=== PATIENT | female | born 1995 ===

== ENCOUNTER 2021-10-19 18:03 | Emergency (ER) | payer MEDICAID ==
[2021-10-19 21:07] LABS: Mucus,Urine FEW /HPF
[2021-10-19 21:17] LABS: Color,Urine Yellow (Yellow)
[2021-10-19 21:31] LABS: Basophils % (Auto) 0.2 % (0.0-1.8); Eosinophils # (Auto) 0.1 K/mm3 (0.0-0.4); Eosinophils % (Auto) 1.3 % (0.0-4.3); Hematocrit 32.6 % (30.3-42.9); Hemoglobin 10.5 gm/dl (10.1-14.3); Lymphocytes # (Auto) 3.3 K/mm3 (1.2-5.4); Lymphocytes % (Auto) 49.2 % (13.4-35.0); Mean Corpuscular HGB Conc 32 % (30-34); Mean Corpuscular Volume 81 fl (79-97); Monocytes # (Auto) 0.7 K/mm3 (0.0-0.8); Monocytes % (Auto) 10.8 % (0.0-7.3); Platelet Count 278 K/mm3 (140-440); Red Blood Count 4.05 M/mm3 (3.65-5.03); Red Cell Distribution Width 15.7 % (13.2-15.2)
--- NOTE | 2021-10-20 04:17 | Emergency Department Report ---
ED Female HPI - General Chief complaint: Vaginal Bleeding Stated complaint: 7WKS /BLEEDING Time Seen by Provider: 10/20/21 03:57 Source: patient Mode of arrival: Ambulatory Limitations: No Limitations - History of Present Illness Initial comments: 26-year-old female with a reported history of miscarriage in June 2021 presents emergency department reporting to be of light from the 6 to 7 weeks and is beginning to experience some similar symptoms that preceded the after mentioned miscarriage. States has been having some spotting which is grown more heavy over the past several hours however no associated pelvic pain, cramping. No fevers, chills, sweats. No nausea, no vomiting, no hematuria, no dysuria. MD Complaint: vaginal bleeding Radiation: suprapubic Severity: mild Improves with: none Worsens with: none Are you Now?: Yes - Related Data Allergies Allergy/AdvReac Type Severity Reaction Status Date / Time No Known Allergies Allergy Unverified 10/19/21 20:23 ED Review of Systems ROS: Stated complaint: 7WKS /BLEEDING Other details as noted in HPI Comment: All other systems reviewed and negative ED Past Medical Hx - Past Medical History Previous Medical History?: No - Surgical History Additional Surgical History: D&C ED Physical Exam - General Limitations: No Limitations General appearance: alert, in no apparent distress - Head Head exam: Present: atraumatic, normocephalic - Eye Eye exam: Present: normal appearance, PERRL Pupils: Present: normal accommodation - ENT ENT exam: Present: normal exam, normal orophraynx, mucous membranes moist - Neck Neck exam: Present: normal inspection, full ROM - Respiratory Respiratory exam: Present: normal lung sounds bilaterally. Absent: respiratory distress, wheezes, rales, rhonchi, chest wall tenderness, decreased breath sounds - Cardiovascular Cardiovascular Exam: Present: regular rate, normal rhythm. Absent: systolic mur mur, diastolic murmur, rubs, gallop - GI/Abdominal GI/Abdominal exam: Present: soft, normal bowel sounds. Absent: distended, tenderness - Extremities Exam Extremities exam: Present: normal inspection, full ROM, normal capillary refill. Absent: pedal edema - Back Exam Back exam: Present: normal inspection. Absent: CVA tenderness (R), CVA tenderness (L), muscle spasm, vertebral tenderness - Neurological Exam Neurological exam: Present: alert, oriented X3, CN II-XII intact, normal gait - Psychiatric Psychiatric exam: Present: normal affect, normal mood - Skin Skin exam: Present: warm, dry, intact, normal color. Absent: rash, diaphoretic, erythema ED Course Vital Signs 10/19/21 20:24 Temperature 99 F Pulse Rate 84 Respiratory 16 Rate Blood Pressure 136/75 [Right] O2 Sat by Pulse 100 Oximetry ED Medical Decision Making - Lab Data Result diagrams: 10/19/21 20:52 Critical care attestation.: If time is entered above; I have spent that time in minutes in the direct care of this critically ill patient, excluding procedure time. ED Disposition Condition: Stable Referrals: AMANDA MOLINA MD [Primary Care Provider] - 3-5 Days
--- NOTE | 2021-10-20 06:14 | Ultrasound Report ---
ULTRASOUND OBSTETRIC Indication: pelvic pain and Findings: There is a tiny hypoechoic sac within the endometrial canal that measures about 8 mm in diameter and may represent early gestational sac both ovaries appear unremarkable. No significant free pelvic flui d identified at this time. Impression: Small hypoechoic sac within the endometrial canal may represent early gestational sac, as above. Signer Name: Beny Brandon MD Signed: 10/20/2021 6:10 AM Workstation Name: [employer]
[2021-10-20 09:18] VITALS: BP 132/82
== END 2021-10-20 09:31 | disposition home or self-care (01) ==
LOC: ED 18:03
DX: O20.8 Other hemorrhage in early pregnancy (principal); Z3A.01 Less than 8 weeks gestation of pregnancy
CPT/HCPCS: 36415; 76801; 76817; 81001; 84702; 84703; 85025; 86850; 86900; 86901; 99284